=== PATIENT | male | born 1955 | race African-American/Black ===

== ENCOUNTER → 2020-12-06 | Outpatient (CLI) | payer OTHER ==
[~2020-12-06] MED LIST: OMNIPAQUE 350 MG/ML, 100ML BOTTLE ONE
== END | disposition home or self-care (01) ==
LOC: CFH 12:55
PROVIDERS: ATTEND Internal Medicine
DX: K44.9 Diaphragmatic hernia without obstruction or gangrene (principal); K76.89 Other specified diseases of liver; M47.816 Spondylosis without myelopathy or radiculopathy, lumbar region; R10.9 Unspecified abdominal pain; R14.0 Abdominal distension (gaseous); R74.01 Elevation of levels of liver transaminase levels; M51.36 Other intervertebral disc degeneration, lumbar region
CPT/HCPCS: 74177; Q9967